=== PATIENT | female | born 1970 | race Caucasian/White ===

== ENCOUNTER 2018-03-16 23:26 | Emergency (ER) | payer SELFPAY ==
[~2018-03-16] VITALS: Ht 170.1 cm; Wt 63.5 kg
--- NOTE | ~2018-03-16 | EKG ---
[place], [place] ELECTROCARDIOGRAM REPORT NAME: ARPIT ANSARI UNIT #: [id number] ROOM: DOCTOR: EPIPHANY DRAFT REPORT BIRTHDATE: [birth year] [facility] Test Date: 2018-03-16 Test Time: 23:51:20 Pat Name: ARPIT ANSARI Department: ER Room: 3 Gender: F Computed Tomography Scanner Operator: Wilman Deleon : 1970 Requested By: KATHRYN DOWLING Order Number: [id number] Reading MD: Godfrey Rucker MD Measurements Intervals [place] Rate: 71 P: -12 RI: 119 QRS: 66 QRSD: 91 T: 29 QT: 379 QTc: 412 Interpretive Statements Sinus rhythm Borderline short RI interval Electronically Signed On 03-17-2018 12:27:55 PST by Godfrey Rucker MD CM:EKGRPT:ELECTROCARDIOGRAM REPORT [id number] KATHRYN DOWLING EPIPHANY DRAFT REPORT KATHRYN DOWLING
[2018-03-16] MEDS ORDERED: ACCUNEB 0.1.25 MG/1 INH (23:40)
[2018-03-17 00:02] LABS: BASO # 0.1 10*3/uL (0.0-0.1); BASO % 0.9 % (0.0-1.0); EOS # 0.2 10*3/uL (0.0-0.4); EOS % 1.9 % (1.0-4.0); HEMOGLOBIN 13.9 g/dl (12.0-16.0); LYMPH # 3.7 10*3/uL (1.3-4.4); LYMPH % 41.1 % (27.0-41.0); MEAN CELL VOLUME 92.4 fl (81.0-99.0); MEAN CORPUSCULAR HGB 32.1 pg (27.0-31.0); MEAN CORPUSCULAR HGB CONC 34.8 g/dl (33.0-37.0); MEAN PLATELET VOLUME 9.9 fl (9.6-12.3); MONO # 0.4 10*3/uL (0.1-1.0); MONO % 4.9 % (3.0-9.0); NEUT # 4.6 10*3/uL (2.3-7.9); PLATELET COUNT AUTOMATED 172 10*3/uL (130-400); RED BLOOD COUNT 4.33 10*6/uL (4.10-5.10); RED CELL DISTRI WIDTH 12.5 % (0-14.5); WHITE BLOOD COUNT 8.9 10*3/uL (4.8-10.8)
[2018-03-17 00:17] LABS: ALBUMIN 3.6 gm/dl (3.1-4.5); ALKALINE PHOSPHATASE 86 U/L (45-117); BUN 15 mg/dl (7-24); CHLORIDE 105 mmol/L (98-107); CREATININE 1.22 mg/dL (0.55-1.02); LIPASE 358 U/L (73-393); POTASSIUM 3.7 mmol/L (3.5-5.1); SGOT/AST 18 IU/L (3-35); SGPT/ALT 21 U/L (12-78); SODIUM 139 mmol/L (136-145); TOTAL PROTEIN 6.3 gm/dL (6.4-8.2)
[2018-03-17 00:18] LABS: TROPONIN I < 0.015 ng/ml (<0.045)
[2018-03-17] MEDS ORDERED: NAPROSYN500 MG PO (00:51)
[2018-03-17] MEDS ORDERED: ZITHROMAX250 MG PO (00:51)
== END 2018-03-17 01:13 | disposition home or self-care (01) ==
LOC: ED 23:26
PROVIDERS: Nurse Practitioner Family
DX: J40 Bronchitis, not specified as acute or chronic (principal); F17.200 Nicotine dependence, unspecified, uncomplicated